=== PATIENT | female | born 2005 | race Hispanic/Latino ===

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

== ENCOUNTER 2024-06-04 18:45 | Observation (INO) | payer MEDICAID ==
[~2024-06-04] VITALS: Ht 160 cm; Wt 112.9 kg
[~2024-06-04 18:45] MED LIST changes: +KETO10TA2 PO
[2024-06-04 18:47] VITALS: BP 127/75; PULSE 88; RESP 16; TEMP 98.3
[2024-06-04 19:23] LABS: ADD UA MICROSCOPIC YES; APPEARANCE,URINE CLOUDY (CLEAR); BILIRUBIN,URINE NEGATIVE (NEGATIVE); COLOR,URINE LIGHT-YELLOW (YELLOW); GLUCOSE, URINE (UA) NEGATIVE (NEGATIVE); KETONES,URINE NEGATIVE (NEGATIVE); LEUKOCYTE ESTERASE ,URINE NEGATIVE Leu/uL (NEGATIVE); NITRATE,URINE NEGATIVE (NEGATIVE); OCCULT BLOOD,URINE NEGATIVE (NEGATIVE); PROTEIN,URINE 30 mg/dL (NEGATIVE); UROBILINOGEN,URINE 0.2 mg/dL (0.2-1.0)
[2024-06-04 19:25] LABS: MUCUS,URINE RARE LPF (None Seen); SQUAMOUS EPITHELIAL CELL,UR MOD /HPF (0-2)
--- NOTE | 2024-06-04 20:46 | HMCIMG ---
US OB >14 WEEKS REASON: pressure, cramping, drop in care COMPARISON: None TECHNIQUE: Routine OB sonogram was performed. FINDINGS: There is a single fetus in cephalic presentation with positive motion and heartbeat. Heart rate is 149 BPM. Composite gestational age is 30 weeks 6 days. Placenta is anterior and grade 1 with MATEO normal at 10.5 cm. Estimated weight is 1563 g, 46th percentile for this age gestation. Visualized anatomy appears unremarkable. Cervix length is between 3.2 and 3.8 cm. IMPRESSION: 1. Single fetus cephalic presentation 30 weeks 6 days composite gestational age.
== END 2024-06-04 21:15 | disposition home or self-care (01) ==
LOC: EDH 18:45 → LDH 18:46
PROVIDERS: ADMIT Obstetrics & Gynecology; ATTEND Obstetrics & Gynecology
DX: O26.893 Other specified pregnancy related conditions, third trimester (principal); R10.9 Unspecified abdominal pain; Z98.890 Other specified postprocedural states; Z79.899 Other long term (current) drug therapy; Z3A.29 29 weeks gestation of pregnancy
CPT/HCPCS: 81001; 76805; G0378 ×2; G0379; 59025

== ENCOUNTER 2024-06-20 13:32 | Observation (INO) | payer MEDICAID ==
[~2024-06-20] VITALS: Ht 160 cm; Wt 117.5 kg
[2024-06-20 13:34] VITALS: BP 143/85; PULSE 106; RESP 18; TEMP 98.1
[2024-06-20 14:26] LABS: AMPHET/METH SCREEN,URINE NEGATIVE (NEGATIVE); BARBITURATE SCREEN, URINE NEGATIVE (NEGATIVE); BENZODIAZEPINES SCREEN,URINE NEGATIVE (NEGATIVE); CANNABINOID SCREEN,URINE NEGATIVE (NEGATIVE); COCAINE SCREEN,URINE NEGATIVE (NEGATIVE); OPIATE SCREEN,URINE NEGATIVE (NEGATIVE); PHENCYCLIDINE SCREEN,URINE NEGATIVE (NEGATIVE)
[2024-06-20 14:47] LABS: APPEARANCE,URINE CLEAR (CLEAR); BILIRUBIN,URINE NEGATIVE (NEGATIVE); COLOR,URINE LIGHT-YELLOW (YELLOW); GLUCOSE, URINE (UA) NEGATIVE (NEGATIVE); KETONES,URINE NEGATIVE (NEGATIVE); LEUKOCYTE ESTERASE ,URINE NEGATIVE Leu/uL (NEGATIVE); NITRATE,URINE NEGATIVE (NEGATIVE); OCCULT BLOOD,URINE NEGATIVE (NEGATIVE); PH,URINE 6.5 (5.0-8.0); PROTEIN,URINE NEGATIVE (NEGATIVE); UROBILINOGEN,URINE 0.2 mg/dL (0.2-1.0)
[2024-06-20 14:56] LABS: ADD UA MICROSCOPIC NO
== END 2024-06-20 15:00 | disposition home or self-care (01) ==
LOC: EDH 13:32 → LDH 13:33
PROVIDERS: ADMIT Obstetrics & Gynecology; ATTEND Obstetrics & Gynecology
DX: O26.893 Other specified pregnancy related conditions, third trimester (principal); Z98.890 Other specified postprocedural states; Z79.899 Other long term (current) drug therapy; N89.8 Other specified noninflammatory disorders of vagina; Z87.891 Personal history of nicotine dependence; Z3A.32 32 weeks gestation of pregnancy
CPT/HCPCS: 80305; 81003; G0379; G0378; 59025

== ENCOUNTER 2024-07-26 16:58 | Emergency (ER) | payer MEDICAID ==
[~2024-07-26] VITALS: Ht 160 cm; Wt 117.9 kg
[2024-07-26 17:40] LABS: SARS-CoV-2, RNA, NAAT NEGATIVE SARS CoV-2 (NEGATIVE)
[2024-07-26 17:44] LABS: RAPID GROUP A STREP negative (NEGATIVE)
[2024-07-26 17:52] LABS: INFLUENZA TYPE A Negative For Type A (NEGATIVE); INFLUENZA TYPE B Negative For Type B (NEGATIVE)
--- NOTE | 2024-07-26 18:17 | ERN ---
ED Note History of Present Illness Stated Complaint: FEVER,MULTIPLE COMPLAINTS Chief Complaint: Flu Symptoms Time Seen by MD: 17:02 Time Seen by Midlevel: 17:10 Dictation: 18-year-old female with a medical history of diabetes coming in complaining of c ough, congestion, fever for three days. Patient is 37 weeks . LMP 11/10/2023, G1. Allergies: Coded Allergies: No Known Drug Allergies (Unverified Allergy, Unknown, 09/18/23) Home Meds Active Scripts Ketorolac Tromethamine (Ketorolac Tromethamine) 10 Mg Tablet, 10 MG PO BID for 5 Days, #10 TAB Prov:MINISTERIO HARTMAN 11/23/23 Cephalexin (Cephalexin) 500 Mg Tablet, 500 MG PO QID for 10 Days, #40 TAB 0 Refills Prov:EDMUND RODRIGUEZ Sr., MD 09/18/23 Past Medical History Past Medical History: Anemia Additional Past Medical Hx: PCOS Surgical History: Tonsillectomy Surgical History Other: OVARIAN CYST REMOVAL, EAR TUBES Social History: Negative, Lives with family LMP: November 10, 2023 : 1 Para: 0 Aborts: 0 Review of System Dictation Constitutional: Positive for fever,chills, Eyes: Negative for injury, pain,redness, and discharge ENT: Negative for injury,pain or swelling Cardiovascular: Negative for chest pain, palpitations, and edema Respiratory: Negative for shortness of breath, cough, and wheezing, Abdomen/GI: Negative for abdominal pain, nausea, vomiting, diarrhea, and constipation Back: Negative for injury and pain : Negative for injury, bleeding and discharge MS/Extremity: Negative for injury and deformity Skin: Negative for rash, and discoloration Neuro: Negative for headache, weakness, numbness, tingling, and seizure Psych: Negative for suicide ideation, homicidal ideation, and hallucinations Review of Systems: was completed Initial Vital Sign VS Vital Signs Date Time Temp Pulse Resp B/P (MAP) Pulse Ox O2 Delivery O2 Flow Rate FiO2 07/26/24 17:03 98.8 108 20 146/90 99 Room Air 07/26/24 18:21 0 21 Physical Exam Dictation General: awake, alert, NAD Head/Face: Normocephalic, atraumatic Eyes: PERRL, EOMI, vision at baseline ENT: oral cavity clear, TMs clear, no signs of infection Neck: Trachea midline, supple, no nuchal rigidity Cardiovascular: RRR, normal S1/S2, No MRGs, no JVD Respiratory: CTAB, no respiratory distress, No rales or wheezes Abdomen: Soft, non-tender, non-distended, normal bowel sounds, no guarding or rebound. Skin: Warm, dry, normal turgor, no rash MS/Extremity: Pulses equal, no cyanosis, neurovascular intact, FROM Neuro: COAx4, GCS 15, strength 5/5, CN 2-12 intact, normal cerebellar exam, normal gait, Psych: Normal behavior, mood, and affect normal Results (Laboratory/Radiology) Laboratory/Radiology Laboratory Tests Test 07/26/24 17:21 Influenza Type A Antigen Negative For Type A Influenza Type B Antigen Negative For Type B SARS-CoV-2, RNA, NAAT NEGATIVE SARS CoV-2 Group A Streptococcus Rapid negative (NEGATIVE) ED Course ED Course Orders Procedure Category Date Status Time Covid Rna Naat LAB 07/26/24 Complete 17:02 Influenza Type A & B, LAB 07/26/24 Complete Rapid 17:02 Rapid (Group A Strep) LAB 07/26/24 Complete 17:02 Vital Signs Date Time Temp Pulse Resp B/P (MAP) Pulse Ox O2 Delivery O2 Flow Rate FiO2 07/26/24 18:21 98.8 95 20 139/87 99 Room Air* 0 21 07/26/24 17:03 98.8 108 20 146/90 99 Room Air Medical Decision Making MDM MDM: 18-year-old female with a medical history of diabetes coming in complaining of cough, congestion, throat pain, fever for three days. Patient is 37 weeks . LMP 11/10/2023, G1. Patient states her niece who is 3 years old was diagnosed with an upper respiratory infection last week. Patient denies any complaints, denies any abdominal pain, cramping. Denies any vaginal pain, pressure, discharge. No urinary symptoms. Serology negative for influenza, COVID, strep. Discussed findings with the patient, educated follow up with PCP an OBGYN in 1-2 days. And discussed [id number] treatments like Tylenol for fever and body aches. Educated on symptoms of when to return back to the ER like nausea, vomiting, fevers. Differential diagnosis: Influenza, COVID, strep, viral syndrome Rationale: Tests considered and ordered secondary to shared decision making include: Previous outside records reviewed: Old ER visits. Risk of complication and/or morbidity or mortality of patient management: None Medications-Per medication reconciliation Need for hospitalization: Patient does not meet criteria for hospitalization. Need for emergency major/minor surgery: No There are no social concerns with this patient. Prescription drug management Prescriptions will include symptomatic care Patient's prior external medical records from other ER visits were reviewed by me as indicated. Prior testing and results from previous visits were reviewed. Prior tests were taken into account with medical decision making and resource utilization, independent historian/historians were used to obtain complete medical history. I independently interpreted the test that were performed, results were reviewed by me and considered findings on radiology if ordered. Medical management and examination interpretation discussions were had by me with other qualified healthcare professionals as indicated for the patient's care. DX & DISP Disposition: Discharge Departure Impression: Primary Impression: Acute viral syndrome Condition: Stable Additional Instructions: Continue taking Tylenol [id number] to control fever. Follow up with PCP and or with your OBGYN. Return to the ER if you have worsening symptoms. Referrals: TOBI DENIS III, MD (PCP) Time of Disposition: 18:16 I have reviewed the case, and I agree with, Diagnosis and Plan MANUEL HARDY NP Jul 26, 2024 18:17 CHRISTELLE WALL DO Jul 28, 2024 07:25
[2024-07-26 18:21] VITALS: BP 139/87; PULSE 95; RESP 20; TEMP 98.8; O2SAT 99
== END 2024-07-26 18:40 | disposition home or self-care (01) ==
LOC: EDH 16:58
DX: B34.9 Viral infection, unspecified (principal); Z20.822 Contact with and (suspected) exposure to COVID-19; Z90.89 Acquired absence of other organs; Z98.890 Other specified postprocedural states
CPT/HCPCS: 87635; 87804; 87880; 99283

== ENCOUNTER 2024-10-17 10:49 | Emergency (ER) | payer MEDICAID ==
[~2024-10-17] VITALS: Ht 160 cm; Wt 117.9 kg
[2024-10-17] MEDS: methoCARBamol 500 MG TABLET PO STA (11:27)
[2024-10-17 12:50] LABS: APPEARANCE,URINE CLEAR (CLEAR); BILIRUBIN,URINE NEGATIVE (NEGATIVE); COLOR,URINE LIGHT-YELLOW (YELLOW); GLUCOSE, URINE (UA) NEGATIVE (NEGATIVE); KETONES,URINE NEGATIVE (NEGATIVE); LEUKOCYTE ESTERASE ,URINE 25 Leu/uL (NEGATIVE); NITRATE,URINE NEGATIVE (NEGATIVE); PROTEIN,URINE 50 mg/dL (NEGATIVE); UROBILINOGEN,URINE 0.2 mg/dL (0.2-1.0)
[2024-10-17 12:54] LABS: HCG,QUALITATIVE URINE NEGATIVE (NEGATIVE)
[2024-10-17 12:58] LABS: BACTERIA,URINE RARE /HPF (None Seen); MUCUS,URINE RARE LPF (None Seen); RBC,URINE 0-1 /HPF (0-1); SQUAMOUS EPITHELIAL CELL,UR RARE /HPF (0-2)
--- NOTE | 2024-10-17 13:34 | HMCIMG ---
Lumbar spine 2 views: AP, lateral Clinical Information: Pain Comparison: None Findings: Exam of the lumbosacral spine demonstrates no evidence of fracture, subluxation, or significant degenerative change. There is straightening of the spine consistent with spasm. The disc spaces are intact. The facet joints are preserved without significant degenerative changes Bone mineralization is normal. Impression: Lumbar spasm.
--- NOTE | 2024-10-17 13:47 | ERN ---
General Chief Complaint: Low Back Pain/Injury Stated Complaint: BACK PAIN Time Seen by MD: 10:51 Time Seen by Midlevel: 10:51 Source: patient History of Present Illness Initial Comments 18-year-old female who presents to the emergency department due to lower back pain onset yesterday. The patient denies any direct injuries or trauma to the back. Reports she has been pushing her vehicle. Denies any numbness or tingling to bilateral lower extremities, denies saddle numbness, dysuria, fever or further associated symptoms. Allergies: Coded Allergies: No Known Drug Allergies (Unverified Allergy, Unknown, 09/18/23) Home Meds Active Scripts Ketorolac Tromethamine (Ketorolac Tromethamine) 10 Mg Tablet, 10 MG PO BID for 5 Days, #10 TAB Prov:MINISTERIO HARTMAN 11/23/23 Cephalexin (Cephalexin) 500 Mg Tablet, 500 MG PO QID for 10 Days, #40 TAB 0 Refills Prov:EDMUND RODRIGUEZ Sr., MD 09/18/23 Past Medical History Past Medical History: No Pertinent History Medical History Other: PCOS Past Surgical History: Tonsillectomy, Other Surgical History Other: OVARIAN CYST, EAR TUBES. Social History Social History: Negative, Lives with family Female( History) LMP: Oct 10, 2024 : 1 Para: 0 Aborts: 0 ROS Dictation Constitutional: Negative for fever,chills, and weight loss Eyes: Negative for injury, pain,redness, and discharge ENT: Negative for injury,pain or swelling Cardiovascular: Negative for chest pain, palpitations, and edema Respiratory: Negative for shortness of breath, cough, and wheezing, Abdomen/GI: Negative for abdominal pain, nausea, vomiting, diarrhea, and constipation Back: Positive for back pain Negative for injury and pain : Negative for painful urination, bleeding or discharge MS/Extremity: Negative for injury and deformity Skin: Negative for rash, and discoloration Neuro: Negative for headache, weakness, numbness, tingling, and seizure Psych: Negative for suicide ideation, homicidal ideation, and hallucinations Physical Exam Physical Exam Dictation General: awake, alert, no acute distress Head/Face: Normocephalic, atraumatic Eyes: PERRL, EOMI, normal conjunctiva ENT: oral cavity clear, oral mucosa moist Neck: Supple, normal range of motion Cardiovascular: RRR, normal S1/S2 Respiratory: CTAB, no respiratory distress Abdomen: Soft, non-tender, non-distended, no guarding or rebound. Skin: Warm, dry, normal turgor, no rash MS/Extremity: Pulses equal, no cyanosis, neurovascular intact, FROM Back: No spinal tenderness, normal range of motion Neuro: COAx4, GCS 15, strength 5/5, CN 2-12 intact, normal cerebellar exam, normal gait Psych: Normal behavior, mood, and affect normal Results Laboratory and Microbiology Lab and Micro Result Laboratory Tests Test 10/17/24 12:04 Urine Color LIGHT-YELLOW (YELLOW) Urine Appearance CLEAR (CLEAR) Urine pH 6.0 (5.0-8.0) Urine Specific [place] 1.014 (1.001-1.031) Urine Protein 50 mg/dL (NEGATIVE) H Urine Glucose (UA) NEGATIVE mg/dL (NEGATIVE) Urine Ketones NEGATIVE mg/dL (NEGATIVE) Urine Occult Blood +- (TRACE) (NEGATIVE) H Urine Nitrate NEGATIVE (NEGATIVE) Urine Bilirubin NEGATIVE mg/dL (NEGATIVE) Urine Urobilinogen 0.2 mg/dL (0.2-1.0) Urine Leukocyte Esterase 25 [place]/uL (NEGATIVE) H Urine RBC 0-1 /HPF (0-1) Urine WBC 2-5 /HPF (0-1) H Urine Squamous Epithelial Cells RARE /HPF (0-2) Urine Bacteria RARE /HPF (None Seen) Urine HCG, Qualitative NEGATIVE (NEGATIVE) Labs Reviewed?: Yes EKG/XRAY/US/CT/MRI X-RAY Comment REASON: Pain ORDERING PHYSICIAN: BELKIS HARP PROCEDURE: LUMB 4VWS - LUMBAR SPINE 4+VWS Lumbar spine 2 views: AP, lateral Clinical Information: Pain Comparison: None Findings: Exam of the lumbosacral spine demonstrates no evidence of fracture, subluxation, or significant degenerative change. There is straightening of the spine consistent with spasm. The disc spaces are intact. The facet joints are preserved without significant degenerative changes Bone mineralization is normal. Impression: Lumbar spasm. DICTATED BY: SANDRA PISANO MD DATE: 10/17/24 4401 MDM MDM: Differential diagnosis: Lumbar strain, lumbar sprain, muscle spasms Rationale: 18-year-old female who presents to the emergency department due to lower back pain onset yesterday. The patient denies any direct injuries or trauma to the back. Reports she has been pushing her vehicle. Denies any numb ness or tingling to bilateral lower extremities, denies saddle numbness, dysuria, fever or further associated symptoms. Per physical examination patient is in no acute distress, normal range of motion of the back, no spinal tenderness. Per lumbar x-ray, straightening of the lumbar spine noted consistent with muscle spasm. Patient was administered methocarbamol and ketorolac in the ED. She was educated on findings and diagnosis. Advised to follow up with PCP. Return to the emergency department if any worsening symptoms. Patient verbalized understanding and is stable for discharge. There are no social concerns with this patient. I independently interpreted the test that were performed, results were reviewed by me and considered findings on radiology if ordered. Medical management and examination interpretation discussions were had by me with other qualified healthcare professionals as indicated for the patient's care. ED Course Orders Procedure Category Date Status Time Urinalysis LAB 10/17/24 Complete W/Microscopic 10:58 ,Urine Test LAB 10/17/24 Complete 10:58 Methocarbamol PHA 10/17/24 Complete (Methocarbamol) 10:58 Lumbar Spine 4+Vws RAD 10/17/24 Resulted 11:13 Ketorolac PHA 10/17/24 Complete Tromethamine 15mg/Ml 14:00 Current Medications Medications (Trade) Dose Ordered Sig/Shawn Route PRN Reason Start Time Stop Time Status Last Admin Dose Admin Ketorolac Tromethamine (toRADol) 15 mg ONCE ONCE IM 10/17/24 14:00 10/17/24 14:01 DC 10/17/24 13:49 Methocarbamol (methoCARBamol) 1,000 mg ONCE STAT PO 10/17/24 10:58 10/17/24 11:02 DC 10/17/24 11:27 Vital Signs Date Time Temp Pulse Resp B/P (MAP) Pulse Ox O2 Delivery O2 Flow Rate FiO2 10/17/24 13:50 97.9 90 15 118/62 98 Room Air* 0 21 10/17/24 10:50 97.9 98 15 123/58 98 Room Air 0 DX & DISP Disposition: Discharge Departure Impression: Primary Impression: Lumbar strain Additional Impression: Muscle spasm Condition: Stable Additional Instructions: Discharge home. Rest. Follow up with primary care in 24 hours. Return to the ER for any acute changes or worsening symptoms. If any medications were prescribed take as directed. Okay to continue home medications unless otherwise discussed during your visit in the emergency room today. Patient was also advised to follow-up with primary care physician in 1 to 2 days for continued monitoring. Referrals: TBOI DENIS III, MD (PCP) I performed the substantive portion of the visit. I have reviewed and personally made and approve the management plan that is documented in the notes by myself or the ANDRÉS. I acknowledge full responsibility for the patient's management plan. BELKIS HARP Oct 17, 2024 13:47
[2024-10-17] MEDS: ketOROlac 15MG/ML VIAL (15MG/ML) IM ONE (13:49)
[2024-10-17 13:50] VITALS: BP 118/62; PULSE 90; RESP 15; TEMP 97.9; O2SAT 98
== END 2024-10-17 14:08 | disposition home or self-care (01) ==
LOC: EDH 10:49
DX: S39.012A Strain of muscle, fascia and tendon of lower back, initial encounter (principal); M62.838 Other muscle spasm; Z90.89 Acquired absence of other organs; Z79.899 Other long term (current) drug therapy; X58.XXXA Exposure to other specified factors, initial encounter; Y93.89 Activity, other specified; Y92.89 Other specified places as the place of occurrence of the external cause; Y99.8 Other external cause status
CPT/HCPCS: 99284; 81001; 81025; 72110; 96372; J1885

== ENCOUNTER 2025-02-04 13:24 | Emergency (ER) | payer MEDICAID ==
[~2025-02-04] VITALS: Ht 160 cm; Wt 122.0 kg
[2025-02-04 14:10] LABS: APPEARANCE,URINE CLEAR (CLEAR); GLUCOSE, URINE (UA) NEGATIVE (NEGATIVE); LEUKOCYTE ESTERASE ,URINE 75 Leu/uL (NEGATIVE); NITRATE,URINE NEGATIVE (NEGATIVE); OCCULT BLOOD,URINE +- (TRACE) (NEGATIVE)
[2025-02-04 14:21] LABS: IMMATURE GRANULOCYTE ABSOLUTE 0.03 K/uL (0-1); NUCLEATED RED BLOOD CELLS 0.0 % (0.0-0.19); PLATELET COUNT (AUTO) 362 K/uL (130-400); RED BLOOD CELL COUNT(AUTO) 4.57 MIL/uL (4.00-5.50); RED CELL DISTRIBUTION WIDTH 19.3 % (11.0-15.5); WHITE BLOOD COUNT (AUTO) 9.1 K/uL (4.8-10.8)
[2025-02-04 14:21] LABS: SQUAMOUS EPITHELIAL CELL,UR FEW /HPF (0-2)
[2025-02-04 14:22] LABS: HCG,QUALITATIVE URINE POSITIVE (NEGATIVE)
[2025-02-04 14:55] LABS: CREATININE 0.6 mg/dL (0.5-1.0); GLOMERULAR FILTR. RATE CALC 132.0 mL/min (>90); GLUCOSE,RANDOM 100.0 mg/dL (70-105); HCG,QUANTITATIVE 60737.0 mIU/mL (0-5); SODIUM SERUM 135.0 mmol/L (136-145); UREA NITROGEN, BLOOD 8.0 mg/dL (7-18)
--- NOTE | 2025-02-04 15:08 | HMCIMG ---
EXAM: US Obstetrical, Complete <14 weeks CLINICAL HISTORY: Abdominal pain TECHNIQUE: Transabdominal imaging of the maternal pelvis and a <14 week gestation with image documentation. COMPARISON: None provided. FINDINGS: GESTATION: Gestational left measurement 2.4 cm, corresponding to 7 weeks 5 days CRL measures 0.8 cm, corresponding to 6 weeks 5 days heart rate on color Doppler seen. (Unable to obtain heart rate due to patient's large body habitus) Ultrasound of age 6 weeks 5 days UTERUS: Unremarkable. No myometrial mass. CERVIX: Not visualized. OVARIES: Unremarkable. No mass. The right ovary obscured due to bowel gases. The left ovary measures 2.7 x 2.5 x 2.2 cm. FREE FLUID: No free fluid. IMPRESSION: 1. Single intrauterine at 6 weeks 5 days by CRL with documented cardiac activity. /[place]
[2025-02-04] MEDS ORDERED: CEPH500B PO (16:15)
--- NOTE | 2025-02-04 16:15 | ERN ---
General Chief Complaint: Abdominal Pain in Stated Complaint: ABD PAIN Time Seen by MD: 13:36 Time Seen by Midlevel: 13:36 Source: patient History of Present Illness Initial Comments Patient is a 19-year-old female presenting to the emergency department for evaluation of suprapubic abdominal cramping that has been ongoing for the past several days. The patient reports a positive home test several days ago but has not followed up with OBGYN. She reports delivering a baby a proximally six months ago. She is a A0. This would be her 2nd . She has an appointment with her OBGYN on February 16 Allergies: Coded Allergies: No Known Drug Allergies (Unverified Allergy, Unknown, 09/18/23) Home Meds Active Scripts Ketorolac Tromethamine (Ketorolac Tromethamine) 10 Mg Tablet, 10 MG PO BID for 5 Days, #10 TAB Prov:MINISTERIO HARTMAN 11/23/23 Cephalexin (Cephalexin) 500 Mg Tablet, 500 MG PO QID for 10 Days, #40 TAB 0 Refills Prov:EDMUND RODRIGUEZ Sr., MD 09/18/23 Past Medical History Past Medical History: Anemia, Diabetes-Type II Medical History Other: PCOS Past Surgical History: Tonsillectomy Surgical History Other: LT OVARIAN SX, EAR TUBES Social History Social History: Negative, Lives with family Female( History) LMP: Dec 02, 2024 : 2 Para: 1 Aborts: 0 ROS Dictation CONSTITUTIONAL: Negative except for HPI HEAD/FACE: Negative except for HPI EENT: Negative except for HPI RESPIRATORY: Negative except for HPI GASTROINTESTINAL/ABDOMINAL: Negative except for HPI GENITOURINARY: Negative except for HPI MUSCULOSKELETAL: Negative except for HPI INTEGUMENTARY: Negative except for HPI NEUROLOGICAL/PSYCH: Negative except for HPI HEMATOLOGIC/LYMPHATIC: Negative except for HPI All Systems Negative, Except as noted above. 13 point review of systems assessed and all negative except for above. Physical Exam Physical Exam Dictation Vital Signs reviewed General Appearance: Alert, oriented x 3, no acute distress, well developed, nourished. Head and Face: non-traumatic. Eyes: PERRL, pink conjunctivas, eyelid no trauma, anterior chamber with arcus senilis. Ears: Pinnas intact and no signs of trauma or erythema ear canals clear and no discharge TM no erythema Nose: No discharge, no bleeding. Oropharynx: Mouth normal, tongue pink, pharynx clear,no erythema, tonsils no exudates, no abscesses noted, mucous membrane moist Neck: Supple, non-tender, no thyromegaly, no masses, no JVD, no bruits Breast:Deferred Chest:No tenderness, no crepitus, no paradoxical movement, no retractions Lungs:Clear, well-ventilated, symmetric, no rales, no wheezing, no rhonchi, no stridor, good breath sounds bilaterally Heart: Regular rate, regular rhythm, no murmur, no gallops Vascular: no peripheral edema, Abdomen: Soft, positive bowel sounds, nondistended, no guarding, nontender, no rebound, no masses no hepatomegaly, no splenomegaly, no Child's sign, no hernias. Rectal: Deferred Genital: Deferred Neurological: Normal speech, motor function intact, sensory function intact Musculoskeletal: Neck nontender, full range of motion, back nontender, full range of motion, Extremities: nontender, full range of motion Skin: Color pink, dry, no turgor, no rash, no lacerations, no abrasions, no contusions. Lymphatic: Deferred Results Laboratory and Microbiology Lab and Micro Result Laboratory Tests Test 02/04/25 13:55 02/04/25 14:15 Urine Color YELLOW (YELLOW) Urine Appearance CLEAR (CLEAR) Urine pH 6.0 (5.0-8.0) Urine Specific [place] 1.024 (1.001-1.031) Urine Protein 100 mg/dL (NEGATIVE) H Urine Glucose (UA) NEGATIVE mg/dL (NEGATIVE) Urine Ketones NEGATIVE mg/dL (NEGATIVE) Urine Occult Blood +- (TRACE) (NEGATIVE) H Urine Nitrate NEGATIVE (NEGATIVE) Urine Bilirubin NEGATIVE mg/dL (NEGATIVE) Urine Urobilinogen 0.2 mg/dL (0.2-1.0) Urine Leukocyte Esterase 75 [place]/uL (NEGATIVE) H Urine RBC 2-5 /HPF (0-1) H Urine WBC 11-25 /HPF (0-1) H Urine Squamous Epithelial Cells FEW /HPF (0-2) Urine Bacteria RARE /HPF (None Seen) Urine HCG, Qualitative POSITIVE (NEGATIVE) H White Blood Count 9.1 K/uL (4.8-10.8) Red Blood Count 4.57 MIL/uL (4.00-5.50) Hemoglobin 9.4 g/dL (12.0-16.0) L Hematocrit 31.5 % (36-48) L Mean Corpuscular Volume 68.9 fL (80-100) L Mean Corpuscular Hemoglobin 20.6 pg (27.0-33.0) L Mean Corpuscular Hemoglobin Concent 29.8 g/dL (32.0-36.0) L Red Cell Distribution Width 19.3 % (11.0-15.5) H Platelet Count 362 K/uL (130-400) Mean Platelet Volume 9.6 fL (7.5-10.5) Immature Granulocyte % (Auto) 0.3 % (0-1) Neutrophils (%) (Auto) 70.1 % (40.0-77.0) Lymphocytes (%) (Auto) 21.9 % (21.0-51.0) Monocytes (%) (Auto) 6.5 % (3.0-13.0) Eosinophils (%) (Auto) 1.1 % (0.0-8.0) Basophils (%) (Auto) 0.1 % (0.0-5.0) Neutrophils # (Auto) 6.4 K/uL (1.8-7.7) Lymphocytes # (Auto) 2.0 K/uL (1.0-4.8) Monocytes # (Auto) 0.6 K/uL (0.1-1.0) Eosinophils # (Auto) 0.10 K/uL (0.00-0.70) Basophils # (Auto) 0.01 K/uL (0.00-0.20) Absolute Immature Granulocyte (auto 0.03 K/uL (0-1) Nucleated Red Blood Cells 0.0 % (0.0-0.19) Red Blood Cell Morphology See comments Sodium Level 135 mmol/L (136-145) L Potassium Level 3.9 mmol/L (3.5-5.1) Chloride Level 101 mmol/L (101-111) Carbon Dioxide Level 27 mmol/L (21-32) Blood Urea Nitrogen 8 mg/dL (7-18) Creatinine 0.6 mg/dL (0.5-1.0) Glomerular Filtration Rate Calc 132 mL/min (>90) Random Glucose 100 mg/dL (70-105) Total Calcium 8.9 mg/dL (8.5-10.1) Human Chorionic Gonadotropin, Quant 16315 mIU/mL (0-5) H Labs Reviewed?: Yes MDM MDM: Differential diagnosis: Urinary tract infection, 1st trimester , miscarriage There are no social concerns with this patient. Prescription drug management Prescriptions will include: Keflex Medical management and examination interpretation discussions were had by me with other qualified healthcare professionals as indicated for the patient's care. ED Course Orders Procedure Category Date Status Time Cbc With Differential LAB 02/04/25 Complete 13:36 Basic Metabolic Panel LAB 02/04/25 Complete 13:36 Hcg,Quantitative LAB 02/04/25 Complete 13:36 ,Urine Test LAB 02/04/25 Complete 13:36 Urinalysis LAB 02/04/25 Complete W/Microscopic 13:36 Us Ob <14 Weeks US 02/04/25 Resulted 13:36 Culture Urine CHRISTY 02/04/25 In Process 14:13 Ceftriaxone 1g Vial PHA 02/04/25 Logged (Rocephine 1g Inj) 16:30 Vital Signs Date Time Temp Pulse Resp B/P (MAP) Pulse Ox O2 Delivery O2 Flow Rate FiO2 02/04/25 14:52 98.1 95 16 135/65 100 Room Air* 0 21 02/04/25 13:26 98.1 97 18 137/66 100 Room Air 0 DX & DISP Disposition: Discharge Departure Impression: Primary Impression: First trimester Additional Impression: Urinary tract infection Condition: Stable Scripts Cephalexin Monohydrate (Keflex) 500 Mg Cap 500 MG PO TID for 7 Days, #21 CAP Prov: MINISTERIO HARTMAN 02/04/25 Referrals: SELF,REFERRAL (PCP) Time of Disposition: 16:14 I have reviewed the case, and I agree with, Diagnosis and Plan I performed the substantive portion of the visit. I have reviewed and personally made and approve the management plan that is documented in the note by myself or the ANDRÉS. I acknowledge for responsibility for the patient's management plan. MINISTERIO HARTMAN Feb 04, 2025 16:15
[2025-02-04 16:21] VITALS: BP 134/62; PULSE 92; RESP 16; TEMP 98.1; O2SAT 100
== END 2025-02-04 16:28 | disposition home or self-care (01) ==
LOC: EDH 13:24
DX: O23.41 Unspecified infection of urinary tract in pregnancy, first trimester (principal); N39.0 Urinary tract infection, site not specified; Z3A.01 Less than 8 weeks gestation of pregnancy; Z90.89 Acquired absence of other organs
CPT/HCPCS: 99285; 76801; 80048; 84702; 85025; 87086; 81001; 81025; 36415; 96372; J0696